=== PATIENT | female | born 1985 | race Caucasian/White ===

== ENCOUNTER 2022-10-22 23:37 | Emergency (ER) | payer MEDICAID, OTHER ==
[~2022-10-22] VITALS: Ht 172.7 cm; Wt 68.0 kg
[2022-10-22 23:41] VITALS: BP_SYST 149
[2022-10-22 23:57] VITALS: BP_SYST 146
== END 2022-10-22 23:57 ==
LOC: SED 23:37
DX: Z02.89 Encounter for other administrative examinations (principal); Z79.899 Other long term (current) drug therapy
CPT/HCPCS: 99283